=== PATIENT | male | born 1985 | race Two or more races ===

== ENCOUNTER 2024-01-01 06:53 | Emergency (ER) | payer OTHER, MEDICAID ==
[~2024-01-01] VITALS: Ht 170.2 cm; Wt 131.0 kg
[2024-01-01 07:59] LABS: Basophils # (auto) 0.1 10 ^3/uL (0-0.2); Basophils % (auto) 0.8 % (0.0-2.0); Eosinophils # (auto) 0.2 10 ^3/uL (0-0.8); Eosinophils % (auto) 1.7 % (0.0-7.0); Hematocrit 47.1 % (41.0-53.0); Hemoglobin 15.7 g/dL (13.5-17.5); Lymphocytes % (auto) 19.4 % (10.0-50.0); Mean Corpuscular Hgb Conc. 33.3 g/dL (32.0-36.0); Mean Corpuscular Volume 90.1 fL (80.0-100.0); Monocytes # (auto) 0.6 10 ^3/uL (0-1.3); Monocytes % (auto) 6.1 % (0.0-12.0); Neutrophils # (auto) 7.4 10 ^3/uL (1.6-8.6); Nucleated Red Blood Cells % 0.1 %; Red Blood Cells 5.23 10^6/uL (4.5-5.90); Red Cell Distribution Width 13.7 % (11.8-14.3); White Blood Cell 10.3 10^3/uL (4.4-10.8)
[2024-01-01] MEDS: MORPHINE SULFATE 4 MG/ML SYR/VIAL IM ONE (08:03)
[2024-01-01 08:16] LABS: Alanine Aminotransferase 33 U/L (7-40); Albumin 4.6 g/dL (3.2-4.8); Alkaline Phosphatase 57 U/L (46-116); Anion Gap 8 (5-15); Aspartate Aminotransferase 16 U/L (13-40); BUN/Creatinine Ratio 12.6 (10.0-20.0); Blood Urea Nitrogen 19 mg/dL (9-23); Carbon Dioxide 25 mmol/L (20-30); Chloride 104 mmol/L (98-107); Glucose 89 mg/dL (74-106); Potassium 4.4 mmol/L (3.5-5.1); Sodium 137 mmol/L (136-145)
[2024-01-01 08:17] LABS: Bilirubin, Total 0.7 mg/dL (0.2-1.0); Total Protein 7.7 g/dL (5.7-8.2)
[2024-01-01 09:04] LABS: INR 1.07 (0.9-1.15); Prothrombin Time 11.3 sec (9.3-11.8)
[2024-01-01 09:12] LABS: Uric Acid 11.3 mg/dL (3.7-9.2)
[2024-01-01] MEDS: ENOXAPARIN SOD 100 MG/1 ML SYRINGE SC ONE (11:09)
[2024-01-01 13:01] VITALS: BP 146/81; PULSE 90; RESP 18; TEMP 98.9; O2SAT 97
== END 2024-01-01 13:08 | disposition short-term general hospital (02) ==
LOC: ER 06:53 → EDBD 06:53 → ER 13:08
DX: I82.442 Acute embolism and thrombosis of left tibial vein (principal); M10.9 Gout, unspecified; I10 Essential (primary) hypertension; Z98.890 Other specified postprocedural states; Z87.891 Personal history of nicotine dependence
CPT/HCPCS: 36415; 80053; 83735; 84550; 85025; 85610; 93971; 96372; 99285; J1650; J2270